=== PATIENT | female | born 1980 | race Caucasian/White ===

== ENCOUNTER 2017-04-02 01:00 | Inpatient (IN) | payer MEDICAID ==
--- NOTE | 2017-04-02 02:13 | OBPROG ---
Labor Progress Note Assessment/Plan: Assessment: Cat 1 fhr exam 1100/-1 srom clear fluid- meconium 2130 contractions q2-3 minutes gbs negative per patient Plan:expectant management of labor 04/02/17 02:14 Subjective/Intrapartum Course: 04/02/17 02:09 Coping fair with the contractions. States rom 2130 clear- meconium stained. Denies difficulties with the . States GBS negative. Denies medical and surgical history. - SVE Dilation (cm): 1 Effacement (%): 100 Station: -1 Membranes: SROM Amniotic Fluid Color: Meconium Stained - Contraction Pattern Assessment Current Contraction Pattern: Regular - FHR Assessment Banks FHR (bpm): 135 FHR Pattern Variability: Moderate FHR Category: 1 - AP Antepartum Course: Denies difficulties antepartum. no dies noted 04/02/17 02:16 - Physical Exam General Appearance: WD/WN, alert, no apparent distress Respiratory: chest non-tender, lungs clear, normal breath sounds Cardiac/Chest: regular rate, rhythm Abdomen: normal bowel sounds Extremities: normal range of motion, Navya's sign (negative bilaterally) DTR- Lower Extremities: Knee (R): 1+, Knee (L): 1+ (no clonus) Skin: normal color, warm/dry Neuro/Psych: no motor/sensory deficits, alert, normal mood/affect, oriented x 3 ICD10 Worksheet Patient Problems: Problems Problem Status Onset LABOR PROM Acute
[2017-04-02] MEDS ORDERED: EPSOM SALT 454 GM TP PRN (02:18)
[2017-04-02] MEDS ORDERED: OLIVE OIL 118 ML BTL MISC PRN (02:18)
[2017-04-02] MEDS ORDERED: LR 1,000 ML IV PRN (02:18)
[2017-04-02] MEDS ORDERED: TERBUTALINE SULFATE 1 MG/ML VIAL IV PRN (02:18)
[2017-04-02] MEDS ORDERED: OXYTOCIN 20 UNIT in LR 1,000 ML IV PRN (02:18)
--- NOTE | 2017-04-02 03:12 | GHP ---
[f rep st] HISTORY AND PHYSICAL DATE OF ADMISSION: 04/02/2017 HISTORY OF PRESENT ILLNESS: The patient is a 1, para 0, 37-year-old, who comes into labor and delivery at 1:30 a.m. on 04/02/2017, with complaints of regular contractions since 2129 as well as spontaneous rupture of membranes of clear and then transitioning to meconium fluid. States feeling positive movement. Fluid continues to leak vaginally. Positive bloody show. Patient is has routinely received care through [facility]. Lives near to [facility] and chose to come here for delivery. Prenatals patient brought with her. GBS was not found on the prenatals. Patient states that she is GBS negative. On her plan her worksite wellness practitioner Marisela has charted GBS negative. Even though unable to get records from [facility] that states GBS negative to take patients word that she is GBS negative. PAST MEDICAL HISTORY: Attention deficit hyperactivity disorder, previous Adderall use. PAST SURGICAL HISTORY: Noncontributory. GYNECOLOGICAL HISTORY: Cervical polyp noted at 26 weeks. HISTORY: Patient is anemic. Patient is AMA. Patient is a 3, AB 1, TAB 1. HIV is negative. TSH was within normal limits. Gonorrhea and chlamydia were negative. Hepatitis is negative. RPR is nonreactive. SOCIAL HISTORY: Patient is . Denies tobacco use. Denies drug use. ALLERGIES: Patient is allergic to amoxicillin. MEDICATIONS: Patient is taking vitamins routinely. PHYSICAL EXAMINATION: GENERAL: Patient is awake, alert, oriented x3. LUNGS: Clear bilaterally. ABDOMEN: Bowel sounds are positive in all 4 quadrants. EXTREMITIES: DTRs are 1+ bilaterally. No clonus. Homans sign is negative bilaterally. PELVIC: With exam, clear fluid was noted. However, patient states that she had seen some meconium shortly after rupture of membranes. Positive bloody show. On exam, patient was 1 cm, 100% effaced, -1 station. Cephalic presentation. Contractions were every 2-3 minutes and patient was working to get through them. Tub was recommended for pain relief, changing positions, different rhythmic breathing was offered to assist with relaxation. ROS x 10 benign LABORATORY DATA: Patient is O positive. Equivocal rubella. GBS is negative. PLAN OF CARE: 1. GBS negative. 2. Expectant management of labor. 3. Continuous monitoring. 4. Meconium fluid. /[id number]/MODL MTDD
[2017-04-02] MEDS ORDERED: LIDOCAINE 1% 300 MG/30 ML SDV ONE (03:45)
[2017-04-02] MEDS ORDERED: MISOPROSTOL 200 MCG TAB ONE (03:46)
[2017-04-02] MEDS ORDERED: OXYTOCIN 10 UNIT/ML VIAL ONE (03:46)
[2017-04-02] MEDS ORDERED: TERBUTALINE SULFATE 1 MG/ML VIAL ONE (03:46)
[2017-04-02] MEDS ORDERED: OLIVE OIL 118 ML BTL ONE (03:46)
[2017-04-02] MEDS ORDERED: AMMONIA AROMATIC 1 EACH AMP IH ONE (03:46)
--- NOTE | 2017-04-02 03:54 | OBPROG ---
Labor Progress Note Assessment/Plan: Assessment: Cat 1 fhr exam 7/100/0 srom clear fluid- meconium 2130 contractions q2-3 minutes gbs negative per patient nitrous to assist with pain relief Plan:expectant management of labor 04/02/17 02:14 04/02/17 03:53 Subjective/Intrapartum Course: 04/02/17 02:09 Coping fair with the contractions. States rom 2130 clear- meconium stained. Denies difficulties with the . States GBS negative. Denies medical and surgical history. 04/02/17 03:52 states pain is a 10 feeling greater pressure - SVE Dilation (cm): 7 Effacement (%): 100 Station: 0 Membranes: SROM Amniotic Fluid Color: Meconium Stained - Contraction Pattern Assessment Current Contraction Pattern: Regular - AP Antepartum Course: Denies difficulties antepartum. no dies noted 04/02/17 02:16 ICD10 Worksheet Patient Problems: Problems Problem Status Onset LABOR PROM Acute
[2017-04-02 04:07] LABS: % IMMATURE GRANULYOCYTES 0.9 % (0.0-1.1); ADD DIFF? NO; ADD MORPH? NO; ADD SCAN? NO; ATYPICAL LYMPHOCYTE FLAG 0 (0-99); FRAGMENT RBC FLAG 0 (0-99); HEMATOCRIT 37.2 % (38.0-47.0); LEFT SHIFT FLG 10 (0-99); LIPEMIA HEMOLYSIS FLAG 90 (0-99); MEAN CELL HEMOGLOBIN 29.5 pg (27.9-34.1); MEAN CELL HEMOGLOBIN CONCENTR. 34.9 g/dL (32.4-36.7); MEAN CELL VOLUME 84.5 fL (81.5-99.8); MEAN PLATELET VOLUME 9.6 fL (8.7-11.7); PLATELET CLUMPS FLAG 0 (0-99); PLATELET COUNT 298 10^3/uL (150-400); RED CELL DISTRIBUTION WIDTH 13.6 % (11.5-15.2)
[2017-04-02] MEDS ORDERED: PHENYLEPHRINE HCL 100 MCG/ML SYR ONE (04:32)
[2017-04-02] MEDS ORDERED: fentaNYL 2MCG/ML/BUP 0.1% RTU 100 ML BAG EP ONE (04:32)
[2017-04-02] MEDS ORDERED: BUPIVACAINE 0.25% 30 ML SDV ONE (04:32)
[2017-04-02] MEDS ORDERED: fentaNYL 100 MCG/2 ML INJ ONE (04:33)
--- NOTE | 2017-04-02 05:09 | PREANESOB ---
Obstetric Pre-Anesthesia Info - Labor Status Cervical Dilation per last OB SVE: 7 Station per last OB SVE: 0 Amniotic Fluid Color: Meconium Stained Anesthesia ROS: see other software for vital signs and pertinent obstetrical info Allergies/Adverse Reactions: Allergy/AdvReac Type Severity Reaction Status Date / Time amoxicillin Allergy Mild Rash Verified 09/09/14 12:35 Home Medications: Medication Instructions Recorded Amphet Asp and D/Amphet [Adderall] 20 mg PO 09/09/14 Hydrocodone/APAP 5/325 [[place] 1 tab PO Q6H #10 tab 09/09/14 5/325] Albuterol 2 puffs IH TID PRN #1 aerosol 09/17/14 Azithromycin [Zithromax] 250 mg PO DAILY #6 tab 09/17/14 04/02/17 Visit Medications: Generic Name Dose Route Start Last Admin Trade Name Freq PRN Reason Stop Dose Admin Lactated Ringer's 1,000 mls @ 0 mls/hr 04/02/17 02:18 Lr IV 09/29/17 02:17 PRN PRN SEE PROTOCOL CONDITIONS Protocol Per Protocol Oxytocin 20 unit/ Lactated 1,002 mls @ 150 mls/hr 04/02/17 02:18 Ringer's IV PRN PRN Post- bleeding Ibuprofen 600 mg 04/02/17 02:18 Motrin PO 09/29/17 02:17 Q6HRS PRN post , inflammation Magnesium Sulfate 454 gm 04/02/17 02:18 Epsom Salt TP 09/29/17 02:17 Q1H PRN perineal discomfort [place] Oil 118 ml 04/02/17 02:18 Sweet Oil MISC 09/29/17 02:17 ONCE PRN perineal massage Terbutaline Sulfate 0.25 mg 04/02/17 02:18 Brethine IV 09/29/17 02:17 ONCE PRN Tachysystole Discontinued Medications Generic Name Dose Route Start Last Admin Trade Name Freq PRN Reason Stop Dose Admin Ammonia (Aromatic Spirit) Confirm 04/02/17 03:46 Ammonia Aromatic Administered 04/02/17 03:47 Dose 1 each IH .STK-MED ONE Bupivacaine HCl Confirm 04/02/17 04:32 Sensorcaine 0.25% Sdv Administered 04/02/17 04:33 Dose 30 ml .ROUTE .STK-MED ONE Fentanyl Confirm 04/02/17 04:33 Sublimaze Administered 04/02/17 04:34 Dose 100 mcg .ROUTE .STK-MED ONE Fentanyl/Bupivacaine HCl Confirm 04/02/17 04:32 Fentanyl/Bupivacaine/Ns 2 Mcg/Ml 0.1% (Premix Administered 04/02/17 04:33 Dose 100 ml EP .STK-MED ONE Lidocaine HCl Confirm 04/02/17 03:45 Lidocaine Hcl 1% Administered 04/02/17 03:46 Dose 300 mg .ROUTE .STK-MED ONE Misoprostol Confirm 04/02/17 03:46 Cytotec Administered 04/02/17 03:47 Dose 800 mcg .ROUTE .STK-MED ONE [place] Oil Confirm 04/02/17 03:46 Sweet Oil Administered 04/02/17 03:47 Dose 118 ml .ROUTE .STK-MED ONE Oxytocin Confirm 04/02/17 03:46 Pitocin Administered 04/02/17 03:47 Dose 40 unit .ROUTE .STK-MED ONE Phenylephrine HCl Confirm 04/02/17 04:32 Neosynephrine Administered 04/02/17 04:33 Dose 1,000 mcg .ROUTE .STK-MED ONE Terbutaline Sulfate Confirm 04/02/17 03:46 Brethine Administered 04/02/17 03:47 Dose 1 mg .ROUTE .STK-MED ONE - Anesthesia History Response to Local Anesthetics: Normal Anesthesia & Operative History: Other (Specify) (wisdom teeth without problem) Family Anesthesia History: Negative - Social History Substance Use/Abuse: Denies - Focused Exam Neck exam: short neck Mallampati Score: Class 3 Mouth exam: normal dental/mouth exam Pulmonary: no respiratory distress Cardiovascular: regular rate and rhythym Labs: 04/02/17 03:46 Patient ABO/Rh O POSITIVE 04/02/17 03:46 - Plan Consent Signed and on Chart: Yes Patient/Guardian Understands and Agrees to Plan: Yes Urgent/Emergent Case: Tonya hanson completed preop but documented later for safe timely pt care General Comments: pt denies any home meds except for PNV, amox causes rash, no hx back proble
[2017-04-02] MEDS ORDERED: PHENYLEPHRINE HCL 100 MCG/ML SYR IVP PRN (05:10)
[2017-04-02] MEDS ORDERED: NALOXONE HCL 0.4 MG/ML INJ IVP PRN (05:10)
[2017-04-02] MEDS ORDERED: ONDANSETRON 4 MG/2 ML VIAL IVP PRN (05:10)
--- NOTE | 2017-04-02 05:11 | OBPROG ---
Labor Progress Note Assessment/Plan: Assessment: Cat 2 fhr early decelerations exam 8/100/0 great change in cervix after pain relief srom clear fluid- meconium 2130 contractions q2-3 minutes gbs negative per patient epidural for pain relief Plan:expectant management of labor 04/02/17 02:14 04/02/17 03:53 04/02/17 05:10 Subjective/Intrapartum Course: 04/02/17 02:09 Coping fair with the contractions. States rom 2130 clear- meconium stained. Denies difficulties with the . States GBS negative. Denies medical and surgical history. 04/02/17 03:52 states pain is a 10 feeling greater pressure 04/02/17 05:09 Request for epidural for pain relief. Feeling better after placement Objective: 04/02/17 03:46 Patient ABO/Rh O POSITIVE 04/02/17 03:46 - SVE Dilation (cm): 8 Effacement (%): 100 Station: 0 Membranes: SROM Amniotic Fluid Color: Meconium Stained - Contraction Pattern Assessment Current Contraction Pattern: Regular - FHR Assessment Banks FHR (bpm): 135 FHR Pattern Variability: Moderate FHR Category: 1 - AP Antepartum Course: Denies difficulties antepartum. no dies noted 04/02/17 02:16 ICD10 Worksheet Patient Problems: Problems Problem Status Onset LABOR PROM Acute
[2017-04-02] MEDS ORDERED: fentaNYL 2MCG/ML/BUP 0.1% RTU 100 ML EP SCH (05:30)
[2017-04-02] MEDS ORDERED: LR 500 ML IV SCH (05:30)
--- NOTE | 2017-04-02 06:06 | OBPROG ---
Labor Progress Note Assessment/Plan: Assessment: Cat 2 fhr variable decelerations exam 10/100/+1 great change in cervix after pain relief srom clear fluid- meconium 2130 contractions q3-4 minutes gbs negative per patient epidural for pain relief epidural bolus to assist with pain relief Plan:expectant management of labor 04/02/17 02:14 04/02/17 03:53 04/02/17 05:10 04/02/17 06:04 Subjective/Intrapartum Course: 04/02/17 02:09 Coping fair with the contractions. States rom 2130 clear- meconium stained. Denies difficulties with the . States GBS negative. Denies medical and surgical history. 04/02/17 03:52 states pain is a 10 feeling greater pressure 04/02/17 05:09 Request for epidural for pain relief. Feeling better after placement 04/02/17 06:04 Feeling some pressure with the contractions attempt to push x 2 with minimal progress will wait for patient to feel greater pressure Objective: 04/02/17 03:46 Patient ABO/Rh O POSITIVE 04/02/17 03:46 - SVE Dilation (cm): 10 Effacement (%): 100 Station: +1 Membranes: SROM Amniotic Fluid Color: Meconium Stained - Contraction Pattern Assessment Current Contraction Pattern: Regular - FHR Assessment Banks FHR (bpm): 125 FHR Pattern Variability: Moderate FHR Category: 1 - AP Antepartum Course: Denies difficulties antepartum. no dies noted 04/02/17 02:16 ICD10 Worksheet Patient Problems: Problems Problem Status Onset LABOR PROM Acute
--- NOTE | 2017-04-02 07:06 | OBPROG ---
Labor Progress Note Assessment/Plan: Assessment: Cat 2 fhr variable pushing changing positions to allow for descent exam 10/100/+1 great change in cervix after pain relief srom clear fluid- meconium 2130 contractions q3-4 minutes gbs negative per patient epidural for pain relief Plan:pushing 04/02/17 02:14 04/02/17 03:53 04/02/17 05:10 04/02/17 06:04 04/02/17 07:05 Subjective/Intrapartum Course: 04/02/17 02:09 Coping fair with the contractions. States rom 2130 clear- meconium stained. Denies difficulties with the . States GBS negative. Denies medical and surgical history. 04/02/17 03:52 states pain is a 10 feeling greater pressure 04/02/17 05:09 Request for epidural for pain relief. Feeling better after placement 04/02/17 06:04 Feeling some pressure with the contractions attempt to push x 2 with minimal progress will wait for patient to feel greater pressure 04/02/17 07:04 Doing well with pushing contractions q 5-7 minutes apart Objective: 04/02/17 03:46 Patient ABO/Rh O POSITIVE 04/02/17 03:46 - SVE Membranes: SROM Amniotic Fluid Color: Meconium Stained - Contraction Pattern Assessment Current Contraction Pattern: Regular - FHR Assessment Banks FHR (bpm): 125 FHR Pattern Variability: Moderate FHR Category: 2 - AP Antepartum Course: Denies difficulties antepartum. no dies noted 04/02/17 02:16 ICD10 Worksheet Patient Problems: Problems Problem Status Onset LABOR PROM Acute
[2017-04-02] MEDS ORDERED: OXYTOCIN 30 UNIT in NS 500 ML IV SCH (07:15)
[2017-04-02] MEDS ORDERED: HYDROCORTISONE 0.5% CREAM TP PRN (09:01)
--- NOTE | 2017-04-02 09:01 | OBDEL ---
Info Type: Vaginal Presentation at Delivery: Vertex L&D Analgesia/Anesthesia Type: Epidural GBS+: No - Care Provider Lithograph Press Feeder/CONSUMER SAFETY OFFICER: Violette Jama - Hospital Course Intrapartum: 04/02/17 02:09 Coping fair with the contractions. States rom 2130 clear- meconium stained. Denies difficulties with the . States GBS negative. Denies medical and surgical history. 04/02/17 03:52 states pain is a 10 feeling greater pressure 04/02/17 05:09 Request for epidural for pain relief. Feeling better after placement 04/02/17 06:04 Feeling some pressure with the contractions attempt to push x 2 with minimal progress will wait for patient to feel greater pressure 04/02/17 07:04 Doing well with pushing contractions q 5-7 minutes apart Indications for Delivery: Spontaneous Labor, SROM Vaginal Delivery - Delivery Provider Delivery Physician/CNM: Patricia Mcmullen Proctoring Provider: Mary Gant - Labor and Delivery Onset of Contractions Date: 04/01/17 Onset of Contractions Time: 20:30 Onset of Contractions Type: Spontaneous Rupture of Membranes Date: 04/01/17 Rupture of Membranes Time: 21:30 Rupture of Membranes Type: Spontaneous Amniotic Fluid Color: Meconium Stained Dilation Complete Date: 04/02/17 Dilation Complete Time: 05:30 Placenta Delivery Date: 04/02/17 Placenta Delivery Time: 08:39 Total Hours of Labor: 12 Laceration: 2nd Degree Repair: 3-0, Vicryl Vaginal Sponge Count Correct: Yes Vaginal Needle Count Correct: Yes Vaginal Sweep Performed: No EBL: 400 Delivery Events: None - Medications Labor Augmentation/Induction Methods Used: None Data Banks Delivery Date: 04/02/17 Delivery Time: 08:33 [place]: 03/26/17 Gestational Age: 41 week(s) and 0 day(s) Sex of : Female Score (1 Min): 8 Score (5 Min): 9 ICD10 Worksheet Patient Problems: Problems Problem Status Onset LABOR PROM Acute
--- NOTE | 2017-04-02 09:06 | OBPROG ---
Labor Progress Note Assessment/Plan: Assessment: Cat 2 fhr variable pushing changing positions to allow for descent exam 10/100/+1 great change in cervix after pain relief srom clear fluid- meconium 2130 contractions q3-4 minutes gbs negative per patient epidural for pain relief Plan:pushing 04/02/17 02:14 04/02/17 03:53 04/02/17 05:10 04/02/17 06:04 04/02/17 07:05 Subjective/Intrapartum Course: 41 ga drop in yepez patient came in with srom clear to meconium 2130. utilized nitrous progressed to epidural for pain relief. 2nd degree laceration repaired with 3.0 vicryl. IV out with pushing im pitocin 10 mu and 800mcg cytotec per rectom ff@u after fundal massage 04/02/17 02:09 Coping fair with the contractions. States rom 2130 clear- meconium stained. Denies difficulties with the . States GBS negative. Denies medical and surgical history. 04/02/17 03:52 states pain is a 10 feeling greater pressure 04/02/17 05:09 Request for epidural for pain relief. Feeling better after placement 04/02/17 06:04 Feeling some pressure with the contractions attempt to push x 2 with minimal progress will wait for patient to feel greater pressure 04/02/17 07:04 Doing well with pushing contractions q 5-7 minutes apart 04/02/17 09:02 Objective: 04/02/17 03:46 Patient ABO/Rh O POSITIVE 04/02/17 03:46 - SVE Membranes: SROM Amniotic Fluid Color: Meconium Stained Dilation Complete Date: 04/02/17 Dilation Complete Time: 05:30 - Contraction Pattern Assessment Current Contraction Pattern: Regular - AP Antepartum Course: Denies difficulties antepartum. no dies noted 04/02/17 02:16 Oxytocin Orders Assessment - Pre-Induction/Augmentation Assessment Gestational Age: 41 week(s) and 0 day(s) ICD10 Worksheet Patient Problems: Problems Problem Status Onset LABOR PROM Acute
[2017-04-02] MEDS ORDERED: MISOPROSTOL 200 MCG TAB PR ONE (09:10)
[2017-04-02] MEDS: IBUPROFEN 600 MG TAB PO PRN ×2 (11:56→20:05)
[2017-04-02] MEDS: DOCUSATE SODIUM 100 MG CAP PO PRN (20:05)
[2017-04-02] MEDS: HYDROCODONE/APAP 5/325 TAB PO PRN (21:07)
[2017-04-03] MEDS: IBUPROFEN 600 MG TAB PO PRN ×3 (02:06→23:00)
[2017-04-03] MEDS: HYDROCODONE/APAP 5/325 TAB PO PRN ×3 (09:14→19:44)
[2017-04-03] MEDS: DOCUSATE SODIUM 100 MG CAP PO PRN ×2 (09:15→19:44)
[2017-04-03] MEDS ORDERED: MEASLES,MUMPS&RUBELLA VACC/PF 0.5 ML VIAL SC ONE (09:27)
--- NOTE | 2017-04-03 14:07 | OBPP ---
Progress Note Assessment/Plan: Assessment: PPD 1 s/p Plan: Routine care, rec MMR 04/03/17 14:05 Subjective/ Course: 04/03/17 14:05 Pt doing fine. Working on BF. Baby has latched. bld is less. urinating fine. Objective: 04/02/17 03:46 Patient ABO/Rh O POSITIVE 04/02/17 03:46 Temp Pulse Resp BP Pulse Ox 36.2 C 90 18 132/90 H 96 04/03/17 09:05 04/03/17 09:05 04/03/17 09:05 04/03/17 09:05 04/02/17 19:36 Uterine Position/Fundal Height: At Umbilicus Uterine Tone: Firm Physical Exam - Physical Exam Abdomen: non-tender, soft, other (FF at umb) Extremities: normal range of motion, non-tender, pedal edema (moderate) Skin: normal color, warm/dry Neuro/Psych: alert, normal mood/affect
[2017-04-04] MEDS: HYDROCODONE/APAP 5/325 TAB PO PRN ×3 (01:39→13:33)
[2017-04-04] MEDS: IBUPROFEN 600 MG TAB PO PRN ×2 (05:31→11:31)
[2017-04-04] MEDS: DOCUSATE SODIUM 100 MG CAP PO PRN (09:04)
--- NOTE | 2017-04-04 09:53 | OBGCSDC ---
General Delivery Information - General Info : 2 Para: 1 Abortions: 1 Type: Vaginal L&D Analgesia/Anesthesia Type: Epidural Admission Date: 04/02/17 Labs: Patient ABO/Rh O POSITIVE 04/02/17 03:46 Hct 37.2 % (38.0-47.0) L 04/02/17 03:46 - Hospital Course Antepartum: Denies difficulties antepartum. no dies noted 04/02/17 02:16 Intrapartum: 41 ga drop in yepez patient came in with srom clear to meconium 2130. utilized nitrous progressed to epidural for pain relief. 2nd degree laceration repaired with 3.0 vicryl. IV out with pushing im pitocin 10 mu and 800mcg cytotec per rectom ff@u after fundal massage 04/02/17 02:09 Coping fair with the contractions. States rom 2130 clear- meconium stained. Denies difficulties with the . States GBS negative. Denies medical and surgical history. 04/02/17 03:52 states pain is a 10 feeling greater pressure 04/02/17 05:09 Request for epidural for pain relief. Feeling better after placement 04/02/17 06:04 Feeling some pressure with the contractions attempt to push x 2 with minimal progress will wait for patient to feel greater pressure 04/02/17 07:04 Doing well with pushing contractions q 5-7 minutes apart 04/02/17 09:02 : 04/03/17 14:05 Pt doing fine. Working on BF. Baby has latched. bld is less. urinating fine. 04/04/17 09:47 S) pt doing well, she reports min pain and bleeding. She is . She is ambulating and voiding without difficulty. She desires d/c home today. FOB @ BS and supportive. O) VSS constitutional: A&Ox3, WNWF HEENT: normocephalic, atraumatic, supple neck Heart: RRR, no murmur Chest: CTA-B Abdomen: soft, nontender uterus: firm @ U-1 lochia: min rubra perineum: healing well extremities: WNL, negative milo's neuro: grossly normal A) 37yo s/p PPD#2 P) d/c home today cont routine PP Care discussed danger S&S- will call if any occur RTO (Mono) in 6 weeks 04/04/17 09:53 Vaginal - Delivery Provider Delivery Physician/CNM: Patricia Mcmullen - Diagnosis Labor: Spontaneous Rupture of Membranes Type: Spontaneous Amniotic Fluid Color: Meconium Stained Laceration: 2nd Degree Repair: 3-0, Vicryl Delivery Events: None - Delivery EBL: 400 [place] [employer] Delivery Date: 04/02/17 Delivery Time: 08:33 [place]: 03/26/17 Gestational Age: 41 week(s) and 2 day(s) Sex of : Female Weight (gm): 2932 g Score (1 Min): 8 Score (5 Min): 8 Discharge Information - Discharge Information Condition: Good Instruction/Follow Up: Six Weeks
[2017-04-04 11:55] VITALS: BP 95/63; PULSE 78; RESP 20; TEMP 98.2; O2SAT 96
== END 2017-04-04 18:00 | disposition home or self-care (01) | DRG 775 ==
LOC: FLD 01:00 → FOB 10:38
PROVIDERS: ADMIT Advanced Practice Midwife; ATTEND Obstetrics & Gynecology
PROC: 0KQM0ZZ Repair Perineum Muscle, Open Approach (ICD-10-PCS; principal; 2017-04-02)
PROC: 3E0P7GC Introduction of Other Therapeutic Substance into Female Reproductive, Via Natural or Artificial Opening (ICD-10-PCS; principal; 2017-04-02)
PROC: 10E0XZZ Delivery of Products of Conception, External Approach (ICD-10-PCS; principal; 2017-04-02)
DX: O48.0 Post-term pregnancy (principal); O70.1 Second degree perineal laceration during delivery; O77.0 Labor and delivery complicated by meconium in amniotic fluid; Z3A.41 41 weeks gestation of pregnancy; Z37.0 Single live birth
CPT/HCPCS: J2370; J3010; J3105